=== PATIENT | female | born 1985 | race Asian ===

== ENCOUNTER 2016-10-04 22:23 | Emergency (ER) | payer OTHER ==
[~2016-10-04] VITALS: Ht 157.5 cm; Wt 57.1 kg
[~2016-10-04 22:23] MED LIST: DONNATAL1 TABLET PO; PRENATAL TABLE1 EAC3 PO; ZOFRAN ODT4 MG PO; ZOFRAN8 MG PO
[2016-10-05 00:18] LABS: HEMATOCRIT 35.9 % (36.0-46.0); MCH 29.1 PG (29.0-34.0); MCHC 34.3 G/DL (30.0-36.0); MCV 85.1 FL (83-99); PLATELET COUNT 189 K/uL (156-360); RBC DIS.WIDTH-CV 11.3 % (11.8-14.6); RED BLOOD COUNT 4.22 M/uL (3.80-5.20); WHITE BLOOD COUNT 6.7 K/uL (4.1-10.2)
[2016-10-05 00:27] LABS: CHLORIDE 107 mEq/L (99-109); POTASSIUM 3.6 mEq/L (3.7-5.4); SODIUM 140 mEq/L (136-147)
[2016-10-05 00:29] LABS: ADD MIUA? YES; BILIRUBIN NEGATIVE; BLOOD MODERATE; COLOR YELLOW ((YELLOW)); GLUCOSE (STRIP) NEGATIVE; KETONES NEGATIVE; LEUKOCYTES SMALL; NITRITE NEGATIVE; PROTEIN (STRIP) 30; SPECIFIC GRAVITY 1.017 (1.000-1.030); UROBILINOGEN 0.2 MG/DL (0.2-1.0)
[2016-10-05 00:29] LABS: GLUCOSE 89 mg/dL (70-99)
[2016-10-05 00:30] LABS: ANION GAP 9 MEQ/L (2-14)
[2016-10-05 00:31] LABS: TOTAL BILIRUBIN 0.2 mg/dL (0.0-1.0)
[2016-10-05 00:32] LABS: ALKALINE PHOSPHATASE 27 IU/L (3-129)
[2016-10-05 00:33] LABS: GFR ESTIMATE (CALCULATED) > 59 mL/min/
[2016-10-05 00:34] LABS: UREA NITROGEN (BUN) 13 mg/dL (9-23)
[2016-10-05 00:36] LABS: LIPASE 15 U/L (1.0-51.0)
[2016-10-05 00:40] LABS: BACTERIA RARE /HPF; EPITHELIAL CELLS RARE /HPF; HYALINE CASTS 0-5 /LPF; MUCUS TRACE /LPF; UCUL ADDED? NO; WHITE BLOOD CELLS 20-30 /HPF (0-5)
[2016-10-05 00:48] LABS: QUANTITATIVE HCG < 4.0 MIU/ML
[2016-10-05] MEDS ORDERED: ZOFRAN4 MG PO (02:13)
[2016-10-05] MEDS ORDERED: CARAFATE100 MG/ML PO (02:13)
[2016-10-05 02:34] VITALS: BP 103/77
== END 2016-10-05 02:35 | disposition home or self-care (01) ==
LOC: EME 22:23
PROVIDERS: Emergency Medicine
DX: R10.11 Right upper quadrant pain (principal); R10.13 Epigastric pain; K29.70 Gastritis, unspecified, without bleeding; R11.2 Nausea with vomiting, unspecified; Z86.19 Personal history of other infectious and parasitic diseases
CPT/HCPCS: 74177; 76705; 80053; 81003; 83605; 83690; 84702; 85027; 93005; 99281; 99285; J2270; J2405; J7030